=== PATIENT | female | born 1985 | race Caucasian/White ===

== ENCOUNTER → 2017-01-31 | Outpatient (CLI) | payer OTHER ==
--- NOTE | 2017-01-31 09:36 | REPMRS ---
Patient History The patient states she had a clinical breast exam in 2016. Family history of breast cancer in maternal aunt at age 62 and ovarian cancer in maternal grandmother at age 77. Digital Mammo Diagnostic Bilateral: January 31, 2017 - Exam #: [id number] Bilateral CC and MLO view(s) were taken. Technologist: July Roe Technologist FINDINGS: The breast tissue is extremely dense which could obscure a lesion on mammography. There is no evidence of cancer on this mammogram. ASSESSMENT: BI-RADS/ACR category 2 mammogram. Benign finding(s). Recommendation Routine screening mammogram of both breasts in 1 year (for women over age 40). This mammogram was interpreted with the aid of an FDA-approved computer-aided dectection system. Electronically Signed By: Austen Whalen MD 01/31/17 0935
== END ==
LOC: M RAD 08:57
PROVIDERS: ATTEND Nurse Practitioner Family
DX: N63.0 Unspecified lump in unspecified breast (principal)

== ENCOUNTER → 2018-06-14 | Outpatient (REF) | payer OTHER | LOC: M LAB REF 16:18 | PROVIDERS: ATTEND Family Medicine | DX: Z12.4 Encounter for screening for malignant neoplasm of cervix (principal) ==

== ENCOUNTER → 2021-01-06 | Outpatient (REF) | payer OTHER | LOC: M SFHCWAGY 18:18 | PROVIDERS: ATTEND Advanced Practice Midwife | DX: Z12.4 Encounter for screening for malignant neoplasm of cervix (principal) ==

== ENCOUNTER → 2021-01-06 | Outpatient (CLI) | payer OTHER ==
[2021-01-06 18:56] LABS: HEPATITIS B CORE ANTIBODY IGM NEGATIVE (NEGATIVE); HEPATITIS B SURFACE ANTIGEN NEGATIVE (NEGATIVE); HEPATITIS C VIRUS ABY INDEX < 0.0 INDEX (<0.8); HIV 1&2 SCREEN CENTAUR NEGATIVE (NEGATIVE)
[2021-01-09 14:09] LABS: HSV TYPE II IgG SPECIFIC 2.72 index (0.00-0.90)
== END ==
LOC: M PLALAB 14:21
PROVIDERS: ATTEND Advanced Practice Midwife
DX: Z11.3 Encounter for screening for infections with a predominantly sexual mode of transmission (principal)

== ENCOUNTER → 2021-01-06 | Outpatient (CLI) | payer OTHER | LOC: M WHC 13:28 | PROVIDERS: ATTEND Advanced Practice Midwife | DX: Z12.31 Encounter for screening mammogram for malignant neoplasm of breast (principal); Z53.9 Procedure and treatment not carried out, unspecified reason ==

== ENCOUNTER → 2022-03-02 | Outpatient (CLI) | payer OTHER | LOC: M WHC 08:36 | PROVIDERS: ATTEND Nurse Practitioner Family | DX: R59.0 Localized enlarged lymph nodes (principal) ==

== ENCOUNTER → 2022-08-27 | Outpatient (REF) | payer OTHER | LOC: M SFHCWAGY 17:45 | PROVIDERS: ATTEND Nurse Practitioner Family | DX: Z12.4 Encounter for screening for malignant neoplasm of cervix (principal) ==

== ENCOUNTER 2022-10-19 07:30 | Day surgery (SDC) | payer OTHER ==
[~2022-10-19] VITALS: Ht 162.6 cm; Wt 46.3 kg
[~2022-10-19 07:30] MED LIST: BUPR-71 PO; BUPR1FIL SL; VALA500T5 PO; ceFAZolin SOD 2 GM in IV 1 EA IV ONE
[2022-10-19] MEDS ORDERED: LR 1,000 ML IV SCH ×2 (07:55→11:55)
[2022-10-19] MEDS ORDERED: ROCURONIUM BROMIDE 50MG/5ML VIAL As Ordered ONE (08:54)
[2022-10-19] MEDS ORDERED: ONDANSETRON 4MG 2ML VIAL As Ordered ONE (08:54)
[2022-10-19] MEDS ORDERED: SUGAMMADEX SODIUM 500 MG/5 ML VIAL (BRIDION) As Ordered ONE (08:54)
[2022-10-19] MEDS ORDERED: MIDAZOLAM INJ 2MG/2ML VIAL As Ordered ONE (08:54)
[2022-10-19] MEDS ORDERED: ACETAMINOPHEN 1000MG 100ML IV BAG As Ordered ONE (08:54)
[2022-10-19] MEDS ORDERED: KETOROLAC 60MG 2ML VIAL As Ordered ONE (08:54)
[2022-10-19] MEDS ORDERED: LIDOCAINE 2% 100MG/5ML SDV (FOR ANES.) As Ordered ONE (08:54)
[2022-10-19] MEDS ORDERED: fentaNYL 100 MCG/2 ML INJECTION As Ordered ONE (08:54)
[2022-10-19] MEDS ORDERED: propofoL 200 MG/20 ML VIAL As Ordered ONE (08:54)
[2022-10-19] MEDS ORDERED: fentaNYL 100 MCG/2 ML INJECTION IV PRN (11:55)
[2022-10-19] MEDS ORDERED: HYDROMORPHONE HCL 0.5 MG/ 0.5 ML SYRINGE IV PRN (11:55)
[2022-10-19] MEDS ORDERED: ONDANSETRON 4MG 2ML VIAL IV PRN (11:55)
[2022-10-19] MEDS ORDERED: oxyCODONE 5MG TAB PO PRN (11:55)
[2022-10-19] MEDS ORDERED: MEPERIDINE 25 MG/ML 1ML VIAL IV PRN (12:10)
[2022-10-19] MEDS ORDERED: NS 1,000 ML IV SCH (12:10)
[2022-10-19] MEDS ORDERED: traMADol 50 MG TAB PO PRN (12:15)
[2022-10-19 12:36] VITALS: BP 131/85; TEMP 98.1; O2SAT 100
== END 2022-10-19 13:05 | disposition home or self-care (01) ==
LOC: M SDC 07:30
PROVIDERS: ATTEND Surgery
DX: K40.90 Unilateral inguinal hernia, without obstruction or gangrene, not specified as recurrent (principal); R51.9 Headache, unspecified; F12.10 Cannabis abuse, uncomplicated; F17.200 Nicotine dependence, unspecified, uncomplicated; F41.9 Anxiety disorder, unspecified; Z79.899 Other long term (current) drug therapy
CPT/HCPCS: 49650; 81025; C1781; J0131; J0665; J0690; J1100; J1885; J2175; J2250; J2405; J3010; S2900

== ENCOUNTER → 2023-10-06 | Outpatient (REF) | payer OTHER ==
[~2023-10-06] MED LIST changes: -ceFAZolin SOD 2 GM in IV 1 EA IV ONE
== END ==
LOC: M SFHCDERM 17:35
PROVIDERS: ATTEND Dermatology
DX: L57.8 Other skin changes due to chronic exposure to nonionizing radiation (principal); L72.0 Epidermal cyst

== ENCOUNTER → 2024-07-17 | Outpatient (REF) | payer OTHER | LOC: M SFHCDERM 18:18 | PROVIDERS: ATTEND Dermatology | DX: L72.0 Epidermal cyst (principal) ==